=== PATIENT | male | born 1945 | race Caucasian/White ===

== ENCOUNTER 2025-01-22 16:27 | Inpatient (IN) | payer OTHER, SELFPAY ==
[2025-01-22] VITALS (44 sets, daily range): BP systolic 127–195; BP diastolic 80–124; BMI 36.7
[2025-01-22 15:29] LABS: Glucose - Point of Care 142 mg/dl (70-99)
--- NOTE | 2025-01-22 15:29 | ED.CVA ---
History of Present Illness
General
Chief Complaint: CVA/TIA Symptoms
Source: patient and ambulance crew
Time Seen by Provider: 01/22/25 15:23
Onset of Stroke Symptoms
Onset of symptoms known: Yes
Date of onset of symptoms: 01/22/25
Time pt last seen normal is known: Yes
Date last time pt seen normal: 01/22/25
Time last time pt seen normal: 14:30
History of Present Illness
History of Present Illness:
This is a 79-year-old male who presents after coworkers noticed that he was not behaving correctly. 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 They also report that he was last seen normal around 230 and walked out with sitting in
the car. Coworkers noticed that he was not really doing anything came out to check on him about half hour later. They found him not behaving normally. EMS was called. They found him to be aphasic and maybe a left-sided facial droop. They also
question right-sided weakness. On my assessment patient is severely aphasic. Does not know why he is here. Does answer his name. Unknown medical history. Blood glucose by EMS was normal
Past History
Past History
ED Past Medical History: Other (Unknown)
Phy Exam
Physical Exam
Physical Exam:
CONSTITUTIONAL Patient alert. Oriented to person. Well-appearing. Vital signs reviewed.
HEAD atraumatic, normocephalic.
EYES eyelids normal to inspection, Extraocular muscles intact, Conjunctiva normal, Sclera normal.
NECK normal range of motion, Trachea midline, no jugular venous distention.
RESPIRATORY CHEST No respiratory distress noted, Chest expansion equal,
BACK normal inspection, no obvious deformities
UPPER EXTREMITY range of motion normal, Motor strength normal, no cyanosis, no edema.
LOWER EXTREMITY range of motion normal, Motor strength normal, no cyanosis, no edema.
NEURO severely aphasic, no pronator drift. Unable to follow commands for cerebellar testing but no obvious ataxia.
SKIN skin warm, dry, and normal in color.
Course
Orders/Labs/Results
Orders:
Orders
01/22/25 15:23
CT HEAD STROKE ALERT W/o Cont Urgent
Comment:
Reason For Exam: aphasia
CT HEAD/NECK ANG STROKE ALERT Urgent
Comment:
Reason For Exam: aphasia
Cardiac Monitoring- Treatment ONCE
01/22/25 15:24
Electrocardiogram (*1) Stat
Reason for Study: Other
Other Reason for Exam: neuro symptoms
01/22/25 15:30
Tenecteplase [Tnkase] 25 mg Syringe [Syringe Non-Pump] 0 ml IV NOW
Provider explained risk/benefits to patient &/or caregiver?: Yes
Blood pressure: 192/124
01/22/25 15:44
Labetalol HCl [Trandate] 20 mg .ROUTE .STK-MED ONE
01/22/25 15:46
Labetalol HCl [Trandate] 10 mg IV NOW STA
Nicardipine 40 mg/200 ml [Cardene] 40 mg in 200 ml IV NOW
Initial dose in mg/hr, then titrate:: 5
Titrate to keep:: BP < 180/105 mmHg
Titrate by mg/hr:: 2.5 mg/hr
Frequency of titrations (minutes):: 5-15 minutes
Maximum dose in mg/hr:: 15
Begin to taper infusion when:: Remained at goal for 2hrs
Taper by mg/hr:: 2.5 mg/hr
Frequency of taper (minutes) if patient maintains goal:: 15-30 minutes
Taper to off?: Yes
If infusion off & no longer maintaining goal:: Contact Provider
01/22/25 16:02
Complete Blood Count/With Diff Urgent
Comprehensive Metabolic Panel Urgent
Glycohemoglobin (HgbA1c) Urgent
PTT Urgent
Prothrombin Time Urgent
TSH Reflex To Free T4 Urgent
Comment: ADD ON
Troponin I Urgent
01/22/25 16:09
Admit/Transfer Patient As Directed
Co-Sign Provider:
Level of Care: Inpatient admission
Assign to:: ICU
Physician / Group: fatuma
Diagnosis: cva
Reason for Hospitalization: cva
Expected length of stay greater than two midnights?: Yes
ELOS- Estimated Length of Stay in days: 2
I certify the patient meets the requirements for IP care: Yes
01/22/25 16:10
PRN Pain Medication Management As Directed
May give lesser potent ordered pain med per pt: Yes
preference::
Protocol:: Medication orders for pain may be administered in a
manner that supports deferring to patient preference
when the pt is:
- Requesting an ordered lesser potent pain medication.
Least to most potent pain medications are defined
as: acetaminophen < NSAID < tramadol < opioids
(morphine, oxycodone, hydromorphone).
- Requesting a lesser dose of the same medication IF
ORDERED.
- Requesting a less intrusive route of administration
if both routes are prescribed by the provider (PO <
IV).
01/22/25 16:11
Code Status As Directed
Resuscitation Status: Full Code
01/22/25 16:31
Case Management Consult ONCE
Case Management Consult: Discharge Planning
Comment: stroke/tia
DIETARY CONSULT Routine
Reason for Consult: stroke/TIA
Health Analytics Consultant Urgent
MRI Brain [MR Brain Without Contrast] Routine
Comment:
Reason For Exam: stroke
Recent pill cam endoscopy?: No
Activity As Directed
Activity Level: As Tolerated
NIH Stroke Scale As Directed
Directions: Per protocol
Comment: every shift and with any change in condition or mental status
Neurological Checks As Directed
Frequency: q1h
Additional Instructions:: q4h x 24h upon admission to the floor, then qshift & with any change in condition
and mental status
Patient Education As Directed
Type: Stroke education packet
Comment: provide to patient and family
Pneumatic Compression Sleeves As Directed
Type: Knee high
Swallow Screening CVA/TIA ONLY As Directed
Comment: NPO until swallowing screening completed
If patient FAILS swallow screening:: NPO, Speech Therapy consult, Aspiration Precautions
If patient PASSES swallow screening, diet:: NPO
Above diet order entered?: Yes- passed screening
Vital Signs As Directed
Frequency: Per unit guidelines
Ot Eval And Treat Routine
Pt Eval And Treat Routine
Activity Level: As Tolerated
Speech Therapy Eval & Treat Routine
DX Deep Vein Thrombosis Video Routine
01/23/25 06:00
Cardiovascular Evaluation IN AM
01/23/25 15:30
CT Head W/o Iv Contrast Routine
Comment:
Reason For Exam: stroke
Abnormal Lab Results
01/22/25 01/22/25
15:23 16:02
WBC 19.3 H 10^3/uL
(4.8-10.8)
RDW 14.6 H %
(11.5-14.5)
Absolute Lymphs (auto) 12.5 H 10^3/uL
(1.2-3.4)
Absolute Monos (auto) 0.8 H 10^3/uL
(0.1-0.6)
Neutrophils % 29.4 L %
(42.2-75.2)
Lymphocytes % 64.9 H %
(20.5-51.1)
PT 15.3 H Sec
(11.4-14.6)
BUN 25 H mg/dl
(9-20)
Glucose 150 H mg/dl
(70-99)
POC Glucose 142 H mg/dl
(70-99)
01/22/25 16:02
01/22/25 16:02
Vital Signs
Initial and Last Documented VS:
Initial Vital Signs
Pulse Resp BP Pulse Ox
94 22 192/124 97
01/22/25 15:21 01/22/25 15:21 01/22/25 15:21 01/22/25 15:21
Last Documented Vital Signs
Temp Pulse Resp BP Pulse Ox
97.7 F 73 16 170/106 93
01/22/25 19:57 01/22/25 22:45 01/22/25 22:45 01/22/25 22:45 01/22/25 22:00
MDM/Problems Addressed
MDM/Problems Addressed:
Acute CVA, hypertensive emergency, atrial fibrillation
*Radiology
Radiology exam reviewed: preliminary read by ED provider (no obvious hemorrhage)
*Pulse Oximetry
Patient hypoxic: no
*EKG
Interpreted by ED Provider?: Yes
Interpretation: abnormal
Rate: normal
Rhythm: a-fib and PVC's
Teague: normal axis
Ischemia: non-specific ST changes
*Senior Facilities Manager Interpretation
Rate: normal
Interpretation: abnormal
Rhythm: a-fib
*Critical Care Note
Total Time (30-74mins, 75-104mins- exclusive of procedures): 45 minutes
Data Reviewed
Source: patient and ambulance crew
Patient Management
Discussion with other providers: Horse Identifier (Case discussed with neurology) and Radiologist
Escalation/DeEscalation of care consider admission/obs:
Patient found to have atrial fibrillation. rad technologist was able to look up his [facility] account that was only filled for metoprolol. No evidence of Coumadin, Eliquis or any other anticoagulant. Neurology at bedside. Blood pressure
better after labetalol. TNK being given now
ED Attending Note
-
Portions of this chart may have been created with voice recognition software.� Occasional wrong word or��sound alike� substitutions may have occurred due to the inherent limitations of voice recognition software.
Discharge Plan
Departure
Patient Disposition: Admit
Date of Disposition: 01/22/25
Time of Disposition: 15:47
Admit to: ICU
Presentation/result/management discussed w/ accepting MD/DO: Hospitalist
Discharge Problem:
Acute cerebrovascular accident (CVA), Hypertensive emergency
Interventions
Interventions:
*Risk Screen - Suicide Last Done: 01/22/25 17:28
*ED COVID-19 Vaccine History Last Done: 01/22/25 17:26
*Nursing Disposition Last Done: 01/22/25 16:42
ED- Pulmonary Assessment Last Done: 01/22/25 15:58
ED- Neurological Assessment Last Done: 01/22/25 15:27
ED- Cardiac Assessment Last Done: 01/22/25 15:58
Discharge Date and Time
Discharge Date/Time: 01/22/25 16:50
--- NOTE | 2025-01-22 15:34 | EDRN ---
Patient arrived as prehospital stroke alert.
Patient is severely aphasic and not following commands. Patient is noted to have a right facial drop upon arrival.
Last know well time was 1430. 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 911 was called
Patient has 16g right arm and 18g left arm placed by EMS.
No previous records noted.
Neurologist bedside upon patients arrival.
--- NOTE | 2025-01-22 15:35 | CON.NEURO ---
Neuro Assessment/Plan
Assessment
Acute stroke left MCA territory
patient severely aphasic, unable to consent, unable to reach any family members, left for 'Seema'
patient in afib, per [facility] he is only on metoprolol, no bloodthinners. nobody available to confirm.
TNK given on emergent basis as it is standard of care
Plan
Admit to MICU for 24 hours of frequent neurochecks.�
neurochecks q1, Frequent vital signs Q15min x 2hrs, then Q30min x 6hrs, then Q1H x 16hrs until stable from the start of TNK.�
�tele, accuchecks/ISS. Repeat Head CT in 24 hours
Blood pressure goals: <180/105 and MAP 80-100� in the acute period.� If BP elevated for 2 readings, preferred agents include IV labetalol or nicardipine.� Vasopressors as necessary to maintain MAP and CPP.�
Glucose goals: Maintain euglycemia using sliding scale insulin. If glucose >180 for two consecutive readings, please use MICU insulin protocol.�
Temperature goals: maintain normothermia�
Diagnostic tests: MRI brain without contrast, ECHO with bubble.
Consultation
Order
Date of Consultation: 01/22/25
Requesting Provider: Ever Manzo
Reason for Consult: stroke alert
Subjective/Objective
Subjective Data
Date of Service: January 22, 2025
He is a 79 year old man presenting with aphasia.
LKN 1430. found inside his car behind [employer] where he works by coworker at 1500.
initial BP 192/124, spontaneously came down to 175/102 then went back up to 195/113, patient given Labetalol 10 171/104 and TNK given
Objective Data
Vital Signs
Pulse Resp BP Pulse Ox
94 22 192/124 97
01/22/25 15:21 01/22/25 15:21 01/22/25 15:21 01/22/25 15:21
Patient Allergies
No Known Allergies Allergy (Verified 01/22/25 15:25)
CVA Assessment
Onset of Stroke Symptoms
Time pt last seen normal is known: Yes
Date last time pt seen normal: 01/22/25
Time last time pt seen normal: 14:30
NIH Stroke Score
Level of Consciousness: 0 - Alert
LOC Questions: 2-Neither correct
LOC Commands: 2-Performs neither correctly
Best Horizontal Gaze: 0-Normal
Visual Mantilla: 0=Normal, no visual loss
Facial Palsy: 1=Minor paralysis
Motor - Right Arm: 0=No drift 10 seconds
Motor - Left Arm: 0=No drift 10 seconds
Motor - Right Le-Drift < 5 seconds
Motor - Left Le-No drift 5 seconds
Limb Ataxia: 0-Absent
Sensation: 0-Normal
Best Language: 2-Severe aphasia
Dysarthria: 0-Normal
Extinction and Inattention: 0-No abnormality
Total Score:: 8
Physical Exam
-
Severe global aphasia
unable to name pen, difficulty following simple commands
right NL flattening
Mild right leg weakness
Medications
-
Home Medications
�Medication �Instructions �Recorded
metoprolol succinate 100 mg 100 mg PO DAILY 01/22/25
tablet,extended release 24 hr
(Toprol XL)
--- NOTE | 2025-01-22 15:46 | EDRN ---
TNK to be given once BP gets below 180 systolic.
[2025-01-22] MEDS: TRANDATE 10 MG IV (15:47)
[2025-01-22] MEDS: TNKASE 5 MG IV (15:51)
--- NOTE | 2025-01-22 16:19 | HPS.HSE ---
Family Physician
-
Family Physician: INTERVIEWE UNKNOWN - PT NOT
Chief Complaint
-
aphasia
History of Present Illness
79-year-old male past medical history of hypertension presenting with not behaving correctly. 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 He was last seen normal at around 2:30 PM and walked out sitting in the car. Coworkers noticed that he was not
really doing anything and came out to check on him half an hour later. They found him behaving abnormally. EMS called and they found him to be aphasic with left-sided facial droop. Also questionable right-sided weakness. Blood sugar by EMS was
normal.
On examination here patient has noticeable aphasia. No other neurological deficits at this time.
Unable to obtain any history as no family available.
Patient unable to provide accurate history although following commands.
Medical History
Past Medical History
Past Medical History: Reports Other (hypertension )
Past Surgical History: Reports None
Social History
Unable to obtain full social history at this time due to: Patient Non-verbal
Family History
Family History: Unable to Obtain
Allergies / Home Medications
Allergies reflects when Allergies were last updated in [facility].
Home Medications with original date entered in [facility]
Allergy/Medication List:
Allergies
Allergy/AdvReac Type Severity Reaction Status Date / Time
No Known Allergies Allergy Verified 01/22/25 15:25
Home Medications
metoprolol succinate 100 mg tablet,extended release 24 hr (Toprol XL) 100 mg PO DAILY 01/22/25
Review of Systems
-
History Source: Patient
A 12 point ROS was completed and negative except as noted: No
Physical Exam
Vital Signs
Vital Signs
Pulse Resp BP Pulse Ox
85 18 171/106 95
01/22/25 16:08 01/22/25 16:08 01/22/25 16:08 01/22/25 15:48
Physical Exam
General: Well Developed, Well Nourished and No Apparent Distress
HEENT: NormoCephalic, Moist mucous membranes and Atraumatic
Respiratory: Clear
Cardiac: S1/S2 and Regular Rhythm; No Murmur or Rub
GI: Soft, Non Tender, Non Distended and Normal Bowel Sounds; No Organomegaly
Rectal: Deferred by Provider
Musculoskeletal: No Clubbing, No Cyanosis and No Edema
Skin: No Rash
Neuro: Nonfocal/grossly intact
Data Reviewed
-
Lab Data: Labs Reviewed by me
Old Records: Reviewed
Impression/Plan
-
IMPRESSION:
PLAN:
# Acute aphasia/altered mental status concerning for large CVA
# Hypertensive emergency
-NIH of 8
-Patient AAO x 0 although following commands with significant aphasia but no other neurological deficits
-Blood pressure of 192/124
-IV labetalol given
goal of keeping blood pressure below 180/105
-Nicardipine drip started
-CT head shows no acute abnormality
-CT angio head and neck pending
-Repeat Ct head in 24 hours
-TNK being given
-Neurochecks q1, NIH checks per protocol
-Check A1c and lipid panel
-N.p.o.
-Check speech and swallow
-Neurology consulted
# New onset atrial fibrillation
-Rate controlled
-Cardiology consulted
Essential hypertension
-Unclear if compliant with metoprolol
Full code
DVT prophylaxis�SCDs
N.p.o.
[2025-01-22 16:20] LABS: Hematocrit 44.3 % (39.0-52.0); Mean Corp Hgb Conc. 33.9 g/dL (33.0-37.0); Mean Corpuscular Hgb 29.6 pg (27.0-31.0); Mean Corpuscular Volume 87.5 fL (80.0-94.0); Mean Platelet Volume 8.9 fL (7.4-10.4); Platelet Count 222 10^3/uL (130-400); Red Blood Cell Count 5.06 10^6/uL (4.70-6.10); Red Cell Dist. Width 14.6 % (11.5-14.5); White Blood Cell Count 19.3 10^3/uL (4.8-10.8)
[2025-01-22 16:26] LABS: INR 1.15; PT 15.3 Sec (11.4-14.6)
[2025-01-22 16:27] LABS: APTT 26.8 Sec (23.4-35.0)
[2025-01-22 16:28] LABS: ALT (SGPT) 22 U/L (0-50); AST (SGOT) 27 U/L (17-59); Alkaline Phosphatase 75 U/L (38-126); Blood Urea Nitrogen 25 mg/dl (9-20); Calcium 9.1 mg/dl (8.4-10.2); Carbon Dioxide 25 mmol/L (22-30); Chloride 104 mmol/L (98-107); Glucose 150 mg/dl (70-99); Potassium 4.5 mmol/L (3.5-5.1); Sodium 136 mmol/L (135-145); Total Protein 6.6 g/dl (6.3-8.2); eGFR > 60.00
[2025-01-22 16:39] LABS: Troponin I < 0.012 ng/ml
--- NOTE | 2025-01-22 16:42 | EDRN ---
Patient was transported to the ICU via ED stretcher.
Verbal report was given to Artemio BHAKTA
Bedside NIH was completed during handoff.
--- NOTE | 2025-01-22 16:44 | CON.CAR ---
Addendum entered and electronically signed by Chauncey Mercedes MD 01/22/25 17:28:
I saw and examined the patient.
The Occupational Therapy Assistant's note was reviewed and I agree with the note.
Comment: Briefly, 79-year-old man past medical history of hypertension found by coworkers to have weakness and facial droop. With concern for acute left MCA stroke patient received TNK in [facility].
Initial ECG showed atrial fibrillation which would be most likely etiology of his CVA
Patient and his tell me they were unaware of a diagnosis of atrial fibrillation previously, although difficult to obtain history from patient given his ongoing expressive aphasia
Given new diagnosis of atrial fibrillation would monitor on telemetry overnight, currently rate controlled with heart rates in the 70s, goal less than 110 bpm
Check transthoracic echocardiogram in a.m. to assess for cardiomyopathy or valvular pathology
Reviewed that patient will ultimately need oral anticoagulation ([id number] of 5 for age, hypertension, stroke) but will defer timing to neurology with concern for possible hemorrhagic conversion
In regards to his blood pressure, per neurology goal BP less than 180/105 mmHg. Agree with nicardipine and as needed labetalol.
Will attempt to obtain prior cardiology records from [facility] in a.m.
Rest per Svetlana Langford
Original Note:
Consultation
Consultation Request
Date/Time Consultation Requested: 01/22/25
Date/Time Consultation Performed: 01/22/25
Requesting Provider: Dr. Fitch
Performing Provider: Dr. Mercedes
Reason for Consultation: HTN emergency
Medical History
-
History of Present Illness:
Patient came to [facility] today as a stroke alert and is being admitted with CVA and new Afib so cardiology is being consulted. Patient with intermittent aphasia, but his is sitting bedside and relates that patient went to work in his usual state of
health. 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 Patient was brought to ER as
a stroke alert and there was concern for a left MCA territory CVA and so he was given TNK. Telemetry monitoring showed atrial fibrillation with controlled ventricular response of unknown chronicity. Patient's is unaware of any diagnosis of
A-fib in the past no previous complaints of palpitations. Patiently is chronically on Toprol-XL 100 mg daily reportedly for history of HTN. He takes an aspirin 81 mg daily at home as well. Patient had seen a oral communication instructor years ago through [facility],
but has not followed up and again no clear previous diagnosis of A-fib. Patient follows with the PCP at the [facility] and sees her once a year or less.
PMH:
HTN
Past Medical History
Past Medical History: Other (in HPI)
Past Surgical History: None
Social History
Tobacco: Non-Smoker
Alcohol: None
Drug: None
Personal:
Living: With Family
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
Family History
Family History: Hypertension
Allergies / Home Medications
Allergy/AdvReac Type Severity Reaction Status Date / Time
No Known Allergies Allergy Verified 01/22/25 15:25
�Medication �Instructions �Recorded �Confirmed �Type
metoprolol succinate 100 mg 100 mg PO DAILY 01/22/25 01/22/25 History
tablet,extended release 24 hr
(Toprol XL)
Review of Systems
-
History Source: Patient and Family ( sitting bedside)
All other systems: Negative unless noted
Physical Exam
Vital Signs
Pulse Resp BP Pulse Ox
77 18 184/113 95
01/22/25 16:38 01/22/25 16:38 01/22/25 16:38 01/22/25 15:48
GEN: NAD. Awake and alert, intermittent aphasia
HEENT: EOMI, MMM
LUNGS: RA. No audible wheeze
CV: Afib on tele. Irreg irreg, no murmur
ABD: soft, BS+, NT, ND
EXT: No clubbing, cyanosis, lesions or edema B/L
NEURO: Gross non-focal
SKIN: Warm, dry and pink. No rash
Lab Results
01/22/25 16:02
01/22/25 16:02
Troponin I < 0.012 ng/ml 01/22/25 16:02
Impression / Plan
-
PCP: at [facility]
Card: Dr. Sorto [phone]
Impression:
Admitted with aphasia, left sided facial droop, acute CVA and received TNK 01/22/25
Acute left MCA territory CVA 01/22/25
s/p TNK 01/22/25
Afib with controlled ventricular response of unknown chronicity
HTN
Echo 01/22/25: study pending
Plan:
-Patient came to [facility] today as a stroke alert and is being admitted with CVA and new Afib so cardiology is being consulted. Patient with intermittent aphasia, but his is sitting bedside and relates that patient went to work in his usual state
of health. 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 Patient was brought to ER
as a stroke alert and there was concern for a left MCA territory CVA and so he was given TNK. Telemetry monitoring showed atrial fibrillation with controlled ventricular response of unknown chronicity. Patient's is unaware of any diagnosis of
A-fib in the past no previous complaints of palpitations. Patiently is chronically on Toprol-XL 100 mg daily reportedly for history of HTN. He takes an aspirin 81 mg daily at home as well. Patient had seen a oral communication instructor years ago through [facility],
but has not followed up and again no clear previous diagnosis of A-fib. Patient follows with the PCP at the [facility] and sees her once a year or less.
-ECG reviewed by me shows A-fib with controlled ventricular response
-Patient was given TNK today and is not yet a candidate for OAC. Talked with patient and about eventually starting Eliquis 5 mg BID (age 79, wt 116 kg).
-Cont Toprol XL 100 mg daily as HR's are currently controlled.
-Will call Dr. Sorto's office in the morning to obtain records and tried to give some level of chronicity to his new finding of A-fib
-Check echo, already ordered
-Follow on tele, HRs controlled thus far
[2025-01-22 17:06] LABS: % Basophils 0.4 % (0-2); % Eosinophils 1.2 % (0-6); % Immature Granulocytes 0.2 % (0-0.5); % Lymphocytes 64.9 % (20.5-51.1); % Monocytes 3.9 % (1.7-9.3); % Neutrophils 29.4 % (42.2-75.2); Absolute Basophils 0.1 10^3/uL (0-0.2); Absolute Eosinophils 0.2 10^3/uL (0-0.7); Absolute Lymphocytes 12.5 10^3/uL (1.2-3.4); Absolute Monocytes 0.8 10^3/uL (0.1-0.6); Absolute Neutrophils 5.7 10^3/uL (1.4-6.5); Nucleated Red Blood Cells % 0 % (-)
[2025-01-22] MEDS: CARDENE 200 IV (17:31)
--- NOTE | 2025-01-22 17:50 | CON.INTV ---
Consultation
Consultation Request
Date/Time Consultation Requested: 01/22/2025 - 1709
Date/Time Consultation Performed: 01/22/2025 - 1727
Requesting Provider: Dr. Fitch
Performing Provider: Dr. Cannon
Reason for Consultation: Suspected CVA s/p TNK
Medical History
-
Chief Complaint: Not acting right with concern for stroke
History of Present Illness:
79-year-old male non-smoker with a past medical history of hypertension who presents with altered mental status. Patient works at [employer] here at [place]. 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
He continues to work at [employer] so that he continues to stay busy in his halfway. While at work today, he was acting abnormal and was seen walking out and sitting in his car. His coworkers noticed that he was not doing anything and came out to
check on him 30 minutes later when they found him behaving abnormally. They called 911 and said that he may be having a stroke as he was not speaking correctly with a left-sided facial droop. On arrival, patient was breathing at 22 breaths/min, BP
192/124, saturating 97% on room air and pulse rate 94. Labs showed leukocytosis to 19.3, INR 1.15, glucose 150, troponin negative at <0.012, and serum sodium 136. Initial NIH stroke scale of 8. There was initially severe global aphasia with right
nasolabial flattening and mild right leg weakness. Initial CT head showed no evidence of an acute intracranial pathology. CTA head/neck showed no LVO, stenosis or occlusion. There was 50-70% stenosis in the clinoid segment of the right ICA. Also
a large multinodular thyroid goiter. Given concern for a left MCA stroke, patient was given TNK at 1551 on 01/22/2025. 4 minutes before giving the TNK, he was given 10 mg labetalol. Patient then brought up to the ICU s/p TNK for close neurological
monitoring and Pin Machine Operator services consulted for additional management/recommendations.
When I saw the patient, his , Seema, was at bedside and assisted with the HPI. According to her, he has no other history besides high blood pressure. She says that he has been compliant with his blood pressure medications and he also takes
aspirin. He is a non-smoker and no current alcohol use. He used to be in the [employer] and was in [place]. There is no prior known history of A-fib although it is currently being detected on the personnel monitor + EKG. The patient's blood pressure
currently is 183/100 and he is on Cardene at 2.5 mg/h. He saturating 97% on room air and heart rate is 79. The patient is able to answer some my questions but he does not always answer appropriately, however he was able to follow most of my
commands and appears in no acute distress.
PMHx: Hypertension + history of vertigo (last episode about 3 years ago)
PSHx: Non-contributory
Past Medical History
Past Medical History: Other (Above as per HPI)
Past Surgical History: Other (Above as per HPI)
Social History
Tobacco: Non-smoker
Alcohol: None
Drug: None
Personal:
Living: With Family (Seema=)
Family History
Family History: CAD (Mother), Cancer (Mother: History of throat cancer (she also was a smoker)) and Other (Father when the patient was just the baby, unknown what the etiology was)
Allergies / Home Medications
Allergies
Allergy/AdvReac Type Severity Reaction Status Date / Time
No Known Allergies Allergy Verified 01/22/25 15:25
Home Medications
�Medication �Instructions �Recorded �Confirmed �Last Taken �Type
metoprolol succinate 100 mg 100 mg PO DAILY 01/22/25 01/22/25 Unknown History
tablet,extended release 24 hr
(Toprol XL)
Review of Systems
Vitals / Labs / Diagnostic Testing
Vital Signs
Pulse Resp BP Pulse Ox
90 18 151/114 95
01/22/25 18:15 01/22/25 18:15 01/22/25 18:15 01/22/25 17:45
Lab Data
01/22/25 16:02
01/22/25 16:02
Laboratory Results
01/22/25
16:02
PT 15.3 H
INR 1.15
APTT 26.8
Diagnostic Testing:
Physical Exam
-
HEENT: Normocephalic and Anicteric
Cardiovascular: Irregular Rhythm (Irregularly irregular), Peripheral Edema (Trace lower extremity edema bilaterally) and Other (Normal heart rate)
Respiratory: Clear, Wheeze (negative), Rales (negative), Rhonchi (negative) and Accessory Resp Muscle Use (negative)
GI: Soft, Non Distended, Non Tender and Normal Bowel Sounds
Neurology: Awake, Alert, No Motor Deficits (Unable to assess senior market intelligence consultant strength due to inability to follow directions; normal bilateral feet dorsi-/plantarflexion with strength: 5/5), Tremors (negative) and Other (Normal sensation to light touch in all 4
extremities as well as face; slight right nasolabial fold flattening when patient smiles; normal shoulder shrug to resistance; able to keep eyes closed against resistance; able to protrude tongue with normal lateral movement; pupils equal at 3mm and
brisk)
Skin: Warm and Dry
General: Respiratory Distress (negative), Comfortable, Fever (negative), Chills (negative) and Sweats (negative)
Assessment
-
Assessment: 79-year-old male non-smoker with a past medical history of hypertension who presents with altered mental status. Patient works at [employer] here at [place]. 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 He continues to work at [employer] so that he continues to stay busy in his halfway. While at work today, he was acting abnormal and was seen walking out and sitting in his car. His coworkers noticed that he was not doing anything and
came out to check on him 30 minutes later when they found him behaving abnormally. They called 911 and said that he may be having a stroke as he was not speaking correctly with a left-sided facial droop. On arrival, patient was breathing at 22
breaths/min, BP 192/124, saturating 97% on room air and pulse rate 94. Labs showed leukocytosis to 19.3, INR 1.15, glucose 150, troponin negative at <0.012, and serum sodium 136. Initial NIH stroke scale of 8. There was initially severe global
aphasia with right nasolabial flattening and mild right leg weakness. Given concern for a left MCA stroke, patient was given TNK at 1551 on 01/22/2025. 4 minutes before giving the TNK, he was given 10 mg labetalol. Patient then brought up to the
ICU s/p TNK for close neurological monitoring and Pin Machine Operator services consulted for additional management/recommendations.
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
was about 20 years ago)
Impression:
#Expressive aphasia with word finding difficulty and right-sided facial weakness (although reports say L-sided facial weakness, but at bedside its his right-side of his face that has deficits) and dysarthria concerning for left MCA stroke s/p TNK
#Leukocytosis likely reactive due to above
#New onset atrial fibrillation (seen on personnel monitor with no prior history known to the patient, as per today)
#Large multinodular thyroid goiter seen on CTA neck from 01/22/2025
#Right internal carotid artery stenosis with 50-70% diameter at clinoid segment seen on CTA head from 01/22/2025
#History of hypertension
Plan:
- Patient has received TNK on 01/22/2025 at 1551 and will require admission to the ICU for q1hr neurochecks
- Neurology consulted and recommendations appreciated
- Continue with NIH stroke scale every shift and obtain stat CT head for any sudden change in neurological status with notification to neurology, health sciences dean and hospitalist
- Strict BP control with goal <180/105, while keeping MAP>65
- Maintain SpO2 >92-94% with aspiration precautions; prn nebulized bronchodilators - not currently bronchospastic
- Maintain MAP>65
- Maintain euglycemia with goal BG 140-180
- Check TTE with bubble study
- MRI brain pending per neuro
- Keep NPO until RN performs bedside swallow study, however would not allow to eat food until pt formally seen by CLINIC MANAGER
- PT/OT; may need physiatry consult
- Given his new onset of atrial fibrillation, would consult cardiology
- Continue with rate control with goal HR <110
- Replete electrolytes with K>4, Mg>2
- Follow up echo
- Initial troponin was negative at <0.012
- Check TSH with reflex to free T4
- Trend H/H and transfuse if needed to keep Hb>7g/dL; keep plt>100k
- DVT ppx: SCDs for now until CT head shows no evidence for ICH after 24 hours s/p TNK
Continue ICU level care for this critically ill patient
Critical care statement: A total of 44 minutes of critical care time was provided for this patient today. This includes management of unstable vital signs, evaluation of the patient at bedside, reviewing the patient's pertinent medical records
including radiographs, microbiology, laboratory evaluations, and discussion with primary team, consultants, pharmacy, nutrition, physical therapy, case management, charge nurse, critical care nursing, and respiratory therapy.
Data:
CT head without contrast 01/22/2025: No evidence of acute intracranial abnormality.
CTA head/neck 01/22/2025:
NECK CTA:
1. Mild calcific atherosclerotic plaque in both carotid bifurcations without evidence for stenosis or occlusion.
2. No CTA evidence for stenosis or occlusion in either vertebral artery.
3. Large multinodular thyroid goiter.
4. 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
5. Severe left facet joint arthrosis at C3/C4 causing severe left neural foraminal narrowing.
HEAD CTA:
1. 50-70% diameter stenosis in the clinoid segment of the right ICA.
2. No CTA evidence for stenosis or occlusion in either middle or anterior cerebral artery.
3. 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
4. No CTA evidence for large vessel arterial stenosis or occlusion in the posterior circulation.
--- NOTE | 2025-01-22 18:24 | PTCARENOTE ---
Pt. arrived from ED, Bedside report completed approx 1608.
TNK given at 1551 per ED mar.
NIH upon arrival 6, x1 post TNK NIH 6, x2 post TNK NIH 6.
Dysarthria improving, Aphasia is expressive/receptive. No sensory loss noted, Full gaze upon H exam. No motor loss noted, equal reactions w.o drift in all 4 extrem. Left sided eyelid droop, Minor left sided droop w. Smile. See NIH flowsheets for
further details. Of note, reports baseline eyelid drooping of Left eye, however admits it to appear worse then normal.
Afib on monitor, Hypertensive Nicarpidine started titrated per protocol see flow sheets. Normothermic.
Both IV sites are prehospital, keeping due to bleeding risk per TNK protocol.
bedside, MRI screening completed by via phonecall wilber conklin RN.
All questions at this time answered.
--- NOTE | 2025-01-22 18:45 | PTCARENOTE ---
NIH during change of shift showed change in mental status, bone drier operator and neurology made aware, stat CT ordered.
--- NOTE | 2025-01-22 18:59 | W.PN.UPDATE ---
Update Note
Progress Note Update
I was notified by the RN that the patient is now having worsening aphasia. I immediately saw the patient and he is having worsening word finding difficulty and appears that he is neglecting his entire right side. Stat CT head is ordered.
Neurology notified. Nighttime ICU EMAIL MARKETING EXECUTIVE made aware. Will continue to closely monitor.
--- NOTE | 2025-01-22 19:15 | PTCARENOTE ---
pt returned from CT, neuro and NIHSS per worklist
--- NOTE | 2025-01-22 20:00 | PTCARENOTE ---
assumed care, dual RN NIHSS worse, dysarthria worsened slurred and garbled speech, expressive and receptive aphasia, pupils 3 equal and reactive, no visual, motor or sensory changes, refer to neuro and NIHSS per worklist, pt appeared to ignore right
side but quickly resolved, when taken to CT patient was able to slide self to and from bed, AFIB on the monitor c PVCs, + pulses, lungs clear on RA 95%, BSx4, pt using urinal blood tinged urine output c blood smear on urinal BULK PLANT OPERATOR made aware, 16G RFA,
18G LFA, both prehospital and not removed following TNK protocol, Cardene off, CHG bath, call pak within reach, otherwise refer to documentation
[2025-01-22 20:57] LABS: TSH Reflex To Free T4 1.01 uIU/ml (0.47-4.68)
[2025-01-22] MEDS: NSS 1000 IV (21:16)
[2025-01-23] VITALS (67 sets, daily range): BP systolic 113–183; BP diastolic 64–134; BMI 36.3
--- NOTE | 2025-01-23 00:30 | PTCARENOTE ---
systems reviewed, neuro checks per worklist, NS 100ml, otherwise refer to documentation
[2025-01-23 04:48] LABS: Hematocrit 43.2 % (39.0-52.0); Hemoglobin 14.4 g/dL (13.0-18.0); Mean Corp Hgb Conc. 33.3 g/dL (33.0-37.0); Mean Corpuscular Hgb 29.3 pg (27.0-31.0); Mean Corpuscular Volume 87.8 fL (80.0-94.0); Mean Platelet Volume 9.2 fL (7.4-10.4); Platelet Count 223 10^3/uL (130-400); Red Blood Cell Count 4.92 10^6/uL (4.70-6.10); Red Cell Dist. Width 14.5 % (11.5-14.5); White Blood Cell Count 22.8 10^3/uL (4.8-10.8)
[2025-01-23 04:57] LABS: Blood Urea Nitrogen 19 mg/dl (9-20); Calcium 9.2 mg/dl (8.4-10.2); Carbon Dioxide 25 mmol/L (22-30); Chloride 106 mmol/L (98-107); Estimated Creatinine Clearance 99 ml/min; Glucose 111 mg/dl (70-99); HDL Cholesterol 47 mg/dl; LDL Cholesterol, Calculated 139 mg/dl; Magnesium 2.2 mg/dl (1.6-2.3); Phosphorus 3.2 mg/dl (2.5-4.5); Potassium 4.4 mmol/L (3.5-5.1); Sodium 139 mmol/L (135-145); Total Cholesterol 203 mg/dl (50-199); Triglyceride 86 mg/dl (10-149); Very Low Density Lipoprotein 17 mg/dl (0-30); eGFR > 60.00
--- NOTE | 2025-01-23 05:26 | PTCARENOTE ---
systems reviewed, Cardene gtt titrated per worklist, labs sent, nuero checks per worklist, otherwise refer to documentation.
--- NOTE | 2025-01-23 07:14 | PTCARENOTE ---
Assumed care of pt. approx 0700.
NIH completed per protocol w. offgoing night team RN. NIH 8, significant for aphasic responses appearing to have minor right sided neglect. No motor deficits noted upon assessment see flowsheets for further details.
BP elevated at times, Cardene restarted.
MRI scheduled for today.
Hematuria noted in urinal.
--- NOTE | 2025-01-23 08:10 | W.PN.INTV ---
Addendum entered and electronically signed by Edgar Cannon MD 01/24/25 09:24:
Patient was weaned off of Cardene drip on 01/23/2025, and was deemed stable for downgrade per neurology. Patient transferred out of the ICU to the floor. No additional recommendations at this time. Hat Cleaner/Pulmonary service will now sign off.
Thank you for allowing us to be involved in the care of this patient. Please reconsult if there are any additional questions/concerns, or if patient's respiratory status deteriorates.
Original Note:
Today's Communication / Plan
Recommendations
Continue Cardene drip with permissive hypertension
Neurology + cardiology on board and recs appreciated
Heart rate control
Replete K>4, Mg>2
Aspiration precautions
Check echo with bubble study
Follow-up MRI brain today
Defer starting anticoagulation to neurology + cardiology depending on risk of hemorrhagic conversion of brain infarcts
PT/OT/HEAVY REPAIRER
Continue with ICU level care for this critically ill patient
Assessment
-
Assessment: 79-year-old male non-smoker with a past medical history of hypertension who presents with altered mental status. Patient works at [employer] at [place]. 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 While at work today, he was acting abnormal and was seen walking out and sitting in his car. His coworkers noticed that he was not doing anything and
came out to check on him 30 minutes later when they found him behaving abnormally. They called 911 and said that he may be having a stroke as he was not speaking correctly with a left-sided facial droop. On arrival, patient was breathing at 22
breaths/min, BP 192/124, saturating 97% on room air and pulse rate 94. Labs showed leukocytosis to 19.3, INR 1.15, glucose 150, troponin negative at <0.012, and serum sodium 136. Initial NIH stroke scale of 8. There was initially severe global
aphasia with right nasolabial flattening and mild right leg weakness. Given concern for a left MCA stroke, patient was given TNK at 1551 on 01/22/2025. 4 minutes before giving the TNK, he was given 10 mg labetalol. Patient then brought up to the
ICU s/p TNK for close neurological monitoring and Hat Cleaner services consulted for additional management/recommendations.
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
was about 20 years ago)
Impression:
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
CVA s/p TNK
#Leukocytosis likely reactive due to above
#New onset atrial fibrillation (seen on ekg monitor with no prior history known to the patient, as per )
#Large multinodular thyroid goiter seen on CTA neck from 01/22/2025
#Right internal carotid artery stenosis with 50-70% diameter at clinoid segment seen on CTA head from 01/22/2025
#History of hypertension
Plan:
- Pt has new onset A fib and this is a suspected cardio-embolic stroke
- Patient has received TNK on 01/22/2025 at 1551; continue q1hr neurochecks at least for >24 hrs s/p TNK
- Neurology consulted and recommendations appreciated
- Continue with NIH stroke scale qshift and obtain stat CT head for any sudden change in neurological status with notification to neurology, special order jeweler and hospitalist
- Strict BP control with goal <180/105, while keeping MAP>65; currently on cardene gtt
- Maintain SpO2 >92-94% with aspiration precautions; prn nebulized bronchodilators - not currently bronchospastic
- Maintain MAP>65
- Maintain euglycemia with goal BG 140-180
- Check TTE with bubble study
- MRI brain pending per neuro
- Patient seen by HEAVY REPAIRER today and recommend IDDSI level 7 with thin liquids
- PT/OT; may need physiatry consult
- Given his new onset of atrial fibrillation, cardiology consulted - recs appreciated
- Continue with rate control with goal HR <110
- Replete electrolytes with K>4, Mg>2
- Follow up echo
- Initial troponin was negative at <0.012
- TSH WNL at 1.01
- Trend H/H and transfuse if needed to keep Hb>7g/dL; keep plt>100k
- DVT ppx: SCDs for now unless MRI brain today shows no evidence for ICH after 24 hours s/p TNK
Continue ICU level care for this critically ill patient
Critical care statement: A total of 38 minutes of critical care time was provided for this patient today. This includes management of unstable vital signs, evaluation of the patient at bedside, reviewing the patient's pertinent medical records
including radiographs, microbiology, laboratory evaluations, and discussion with primary team, consultants, pharmacy, nutrition, physical therapy, case management, charge nurse, critical care nursing, and respiratory therapy.
Data:
CT head without contrast 01/22/2025: No evidence of acute intracranial abnormality.
CTA head/neck 01/22/2025:
NECK CTA:
1. Mild calcific atherosclerotic plaque in both carotid bifurcations without evidence for stenosis or occlusion.
2. No CTA evidence for stenosis or occlusion in either vertebral artery.
3. Large multinodular thyroid goiter.
4. 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
5. Severe left facet joint arthrosis at C3/C4 causing severe left neural foraminal narrowing.
HEAD CTA:
1. 50-70% diameter stenosis in the clinoid segment of the right ICA.
2. No CTA evidence for stenosis or occlusion in either middle or anterior cerebral artery.
3. 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
4. No CTA evidence for large vessel arterial stenosis or occlusion in the posterior circulation.
CT head 01/22/2025 at 7:58 PM after change in mental status with right-sided neglect:
1. New asymmetric loss of wqap-jeyfe-sniub matter differentiation in the posterior superior left temporal lobe and inferior left parietal lobe suggesting cytotoxic edema from an acute transcortical ischemic infarct in the left middle cerebral
artery territory.
2. Mild diffuse cerebral and cerebellar volume loss.
Subjective Dataa
Subjective Data
Date of Service:
Date of Service: January 23, 2025
Chief Complaint: Hat Cleaner Follow Up
Subjective:
Patient seen evaluate this morning. Still having confusion and answering questions inappropriately. Patient's , Seema, at bedside and all questions were answered. He is speaking clearly. BP 152/94, heart rate 107 and saturating 97%.
Currently on Cardene at 2.5 mg/hr. On room air breathing comfortably.
Review of Systems
General: Other (Unobtainable due to altered mental status/confusion)
Objective Data
Data Reviewed
Vital Signs / I&O / Oxygen:
Vital Signs
Temp Pulse Resp BP Pulse Ox
97.6 F 99 20 154/85 95
01/23/25 08:29 01/23/25 09:16 01/23/25 09:16 01/23/25 09:16 01/23/25 09:16
Intake and Output
01/22/25 01/23/25 01/24/25
06:59 06:59 06:59
Intake Total 945.0 / 1045.0 325.0 / 325.0
Output Total 700 / 700 400 / 400
Balance 245.0 / 345.0 -75.0 / -75.0
SaO2 95
Physical Exam
General: Respiratory Distress (negative), Comfortable, Chills (negative) and Sweats (negative)
HEENT: Normocephalic and Anicteric
Cardiovascular: Irregular Rhythm, Rub (negative) and Peripheral Edema (negative)
Respiratory: Wheeze (negative), Crackles (negative), Rhonchi (negative) and Non-Labored Respirations
GI: Soft, Non Distended and Non Tender
Neurology: Awake, Alert, No Motor Deficits (Unable to assess rotary slicing machine operator strength due to inability to follow directions; normal bilateral feet dorsi-/plantarflexion with strength: 5/5), Tremors (negative) and Other (Normal sensation to light touch in all 4
extremities as well as face; slight right nasolabial fold flattening when patient smiles; normal shoulder shrug to resistance; able to keep eyes closed against resistance; able to protrude tongue with normal lateral movement; pupils equal at 3mm and
brisk)
Skin: Warm, Dry, Cyanosis (negative) and Jaundice (negative)
Labs/Micro/Reports
Lab Data
01/23/25 04:18
01/23/25 04:18
Laboratory Results
01/22/25
16:02
PT 15.3 H
INR 1.15
APTT 26.8
[2025-01-23 09:20] LABS: Glycohemoglobin (HgbA1c) 5.7 % (4.0-5.6)
[2025-01-23] MEDS: COREG 3.125 MG PO ×2 (11:09→20:33)
--- NOTE | 2025-01-23 12:57 | PTCARENOTE ---
No change in assessment. see neuro flowsheets for closer details.
[2025-01-23] MEDS: NSS IV (13:18)
--- NOTE | 2025-01-23 14:08 | PTOTSP ---
Speech Therapy Evaluation:
Swallow:
Pt presents with grossly functional oropharyngeal swallow at bedside. No overt s/sx of aspiration across PO trials. Pt passed 3oz swallow screen. No hx of dysphagia or PNAs per pt/family report or chart review. Given increased WBC count, no
completed chest imaging, and ongoing CVA workup (awaiting MRI), GERM DRIER services will continue to briefly follow.
Language:
Pt earned an overall score of 2.17 on the QAB, indicative of SEVERE aphasia impacting expressive language, receptive language, repetition, and oral reading. In conversation and during structured assessment, pt's speech varied between fluent and
non-fluent characteristics. It was often slow and halting, with a telegraphic quality, as well as phonemic and semantic paraphasias with frequent word finding deficits. At other times, pt's speech was empty (vague words, utterances unclear in
meaning and/or tangential) and paragrammatic, with occasional neologisms. Given this mix of both fluent and non-fluent features, in addition to impairments with repetition, pt is currently presenting with a mixed aphasia. Cognition not assessed on
this date given extent of language impairments that would negatively impact score on cognitive assessment.
Word comprehension: 0.83
Sentence comprehension: 0.00
Word findin.08
Grammatical construction: 2.00
Speech motor programmin.50
Repetition: 0.00
Readin.92
QAB overall score 2.17 (SEVERE)
Recommend:
1. Continue IDDSI Level 7 (regular) solids and thin liquids
2. Medications as tolerated
3. General aspiration precautions
4. GERM DRIER to follow briefly at acute care level for swallow. Ongoing tx at the acute care level and following d/c at the next level of care recommended to target language deficits.
--- NOTE | 2025-01-23 14:52 | W.PN.HOSP.TC ---
Addendum entered and electronically signed by Oswaldo Schmitz MD 01/23/25 21:39:
Attending Addendum-
I saw and evaluated the patient. I reviewed the resident�s note and agree with findings and plan as documented in the resident�s note. Sub: Patient seen with . Severe word finding difficulty but follows commands intermittently . H/O from .
Doesn't appear to be in distress. Had worsening aphasia last PM and repeat CT done. Full 12 point ROS reviewed and negative except as documented - limited by aphasia Exam: Vitals reviewed in chart GEN-NAD Hert irreg irreg lungs clear abd soft LE no
edema Neuro expressive aphasia following commands intermittently MS 5/5 throughout no cerebellar deficits no facial droop noted no right sided neglect noted
# Acute CVA
# Hypertensive emergency
-Blood pressure of 192/124
-IV labetalol given
goal of keeping blood pressure below 180/105
-cont Nicardipine gtt-wean as able
-likely cardioembolic with new a fib
NECK CTA:
1. Mild calcific atherosclerotic plaque in both carotid bifurcations without evidence for stenosis or occlusion.
2. No CTA evidence for stenosis or occlusion in either vertebral artery.
3. Large multinodular thyroid goiter.
4. 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
5. Severe left facet joint arthrosis at C3/C4 causing severe left neural foraminal narrowing.
HEAD CTA 01/22 @ 3PM:
1. 50-70% diameter stenosis in the clinoid segment of the right ICA.
2. No CTA evidence for stenosis or occlusion in either middle or anterior cerebral artery.
3. 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
4. No CTA evidence for large vessel arterial stenosis or occlusion in the posterior circulation.
-Repeat Ct head- 01/22 @ 8PM
1. New asymmetric loss of fdth-[id number]-[id number] matter differentiation in the posterior superior left temporal lobe and inferior left parietal lobe suggesting cytotoxic edema from an acute transcortical ischemic infarct in the left middle
cerebral artery territory.
-TNK given 01/22
-Neurochecks and NIH checks per protocol
-Check A1c and lipid panel
-Check speech and swallow-cont NPO for now
-d/w Neurology
-start asa and atorva today
-check MRI today
-eventual DVTp when able
-transfer to tele OK with neuro
# New onset atrial fibrillation
-Rate controlled, CVasc-5
-Cardiology consulted
-start NOAC in 1 week s/p TNK
-start coreg
-echo 01/22- Normal left ventricular systolic function. Normal regional wall motion. Mild concentric left ventricular hypertrophy. Left ventricular ejection fraction is 65-70%.
#Essential hypertension
-Unclear if compliant with metoprolol- hold change to coreg
# MN thyroid
- thyroid US as OP
- check TSH
# Leukocytosis
- likely reactive
- trend
Full code
DVT prophylaxis�SCDs
N.p.o.
ACP
Patient consented to discuss by nodding, was with , time spent explanation of advance directives, changes in health status, patient�s health care wishes if the patient becomes unable to make health decisions, goals of care, code status, and
prognosis 'i cant think about that right now do everything'- 16 minutes
CC Note
Due to a high probability of clinically significant, life-threatening deterioration, the patient required a high level of preparedness to intervene emergently. I personally spent this critical care time directly and personally managing the patient.
This critical care time included obtaining a history; examining the patient; ordering and review of studies and STAT labs; arranging urgent treatment with development of a management plan; evaluation of patient's response to treatment; reassessment;
and, discussions with other providers.
This critical care time was performed to assess and manage the high probability of imminent, life-threatening deterioration that could result in multi-organ failure. It was exclusive of separately billable procedures and treating other patients and
teaching time. Total time documented is also exclusive of any additional time listed that was spent in advance care planning discussion
Total critical care time: Approximately 35 minutes
Original Note:
Today's Communication/Plan
-
* ST-PT-OT
* Echo and MR planned.
* Eventual switch to DOAC.
* Strict BP control.
Assessment / Plan
Assessment / Plan
Assessment
Varun Beebe, 79-year-old male, was admitted to the hospital on 01-22-25 with expressive aphasia, left-sided facial droop and questionable right-sided weakness. He was also found to be in atrial fibrillation, and with his only medication being
metoprolol succinate, there was a question about how long he has had a-fib and if he is/was anticoagulated. Records did not show he was ever prescribed an AC and family were not reachable, so decision was made to initiate tenecteplase. He was
admitted to the ICU for eventual care.
Impression and plan
Left middle cerebral artery stroke
- Likely embolic in setting of atrial fibrillation and not on anticoagulation.
- Has regained some word finding ability but continues to have difficulties.
- Eventual switch to DOAC.
- Blood pressure goal of <180/105 mmHg or MAP 80-100.
- Nicardipine or labetalol for corrections.
- Start carvedilol.
- Neurochecks per protocol.
- MR pending.
- ST-PT-OT.
Atrial fibrillation without rapid ventricular response, uncertain chronicity
- On nicardipine; continue metoprolol once off.
- [id number] of 5.
- Plan to initiate DOAC.
- Echocardiogram pending.
Primary hypertension
- On metoprolol.
- Likely would benefit from additional agents.
Leukocytosis
- Likely reactive in setting of acute CVA and thrombolysis.
- Asymptomatic from an infectious stand point.
Right internal carotid artery stenosis.
- Asymptomatic.
Large multinodular thyroid goiter
- Noted on CTA.
- No known history of thyroid disease.
- TSH within normal limits; T4 and T3 pending.
Hyperlipidemia
- Start high-intensity statins.
Thromboprophylaxis
- Sequential compression device.
Code status
- Full.
Anticipated Discharge: > 48 hours
Subjective/Interval History
-
Date of Service: January 23, 2025
Improved word recall - able to use words in combinations now.
Objective Data
-
Labs:
Laboratory Results
01/23/25
04:18
WBC 22.8 H
Hgb 14.4
Hct 43.2
Plt Count 223
Sodium 139
Potassium 4.4
Chloride 106
Carbon Dioxide 25
BUN 19
Creatinine 0.8
Glucose 111 H
Calcium 9.2
Vital Signs:
Vital Signs
Temp Pulse Resp BP Pulse Ox
98.1 F 89 18 141/83 96
01/23/25 11:39 01/23/25 14:15 01/23/25 14:15 01/23/25 14:15 01/23/25 10:45
I&O
01/22/25 01/23/25 01/24/25
06:59 06:59 06:59
Intake Total 945.0 / 1045.0 762.5 / 762.5
Output Total 700 / 700 700 / 700
Balance 245.0 / 345.0 62.5 / 62.5
Review of Systems
-
Unable to obtain full review of systems at this time due to: Acuity
Physical Exam
-
General: No Apparent Distress and Comfortable
HEENT: Normocephalic, Atraumatic, Moist Mucous Membranes and Other (ptosis on LEFT with facial droop)
Respiratory: Clear to Auscultation and Non Labored Respirations
Cardiac: Regular Rhythm and S1/S2
GI: Soft, Nontender, Nondistended and No Hepatosplenomegaly
Genito-urinary: No Costovertebral Tender
Musculoskeletal: No Clubbing, No Cyanosis and No Edema
Skin: Warm, Dry and IV Access / Catheter Site
Neuro: Awake, Alert, Facial Droop and Other (expressive aphasia)
Hematologic / Lymphatic: No Lymphadenopathy
Psych: Anxious
--- NOTE | 2025-01-23 14:55 | CM ---
CM reviewed chart, call to patients , Seema, initial assessment completed. Per , patient resides in a two story home (through front door: 5 steps, landing, another 5 steps, through garage: 12 steps to enter home). Patient is independent with
ADLs/IADLs, denies DME, reports VN in past after bilateral hip surgery, unsure agency, denies SNF. 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 reports patient sees PCP Dr. Turcios through [facility] once a year (in [place]), [facility] in [place] for immediate
needs, otherwise [facility]. CM will continue to follow for all discharge planning needs.
Plan; watch for PT/OT evals when able
--- NOTE | 2025-01-23 15:31 | W.PN.CARDCBS ---
Today's Communication / Plan
-
Status post CVA
Blood pressure management with goals per neurology.
Await echocardiogram
Risk factor modification
Atrial fibrillation is rate controlled.
Impression / Plan
-
PCP: at [place]
Card: Dr. Sorto [phone]
Impression:
Admitted with aphasia, left sided facial droop, acute CVA and received TNK 01/22/25
Acute left MCA territory CVA 01/22/25
s/p TNK 01/22/25
Afib with controlled ventricular response of unknown chronicity
HTN
Echo 01/22/25: study pending
CTA of the head and neck 01/22/2025 revealed
NECK CTA:
1. Mild calcific atherosclerotic plaque in both carotid bifurcations without evidence for stenosis or occlusion.
2. No CTA evidence for stenosis or occlusion in either vertebral artery.
3. Large multinodular thyroid goiter.
HEAD CTA:
1. 50-70% diameter stenosis in the clinoid segment of the right ICA.
2. No CTA evidence for stenosis or occlusion in either middle or anterior cerebral artery.
3. 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
4. No CTA evidence for large vessel arterial stenosis or occlusion in the posterior circulation.
Plan:
Patient presented as a stroke alert with CVA and new onset atrial fibrillation. CT scan of the head 01/22/2025 with left MCA territory infarct.
Blood pressure fair overall. Continue permissive hypertension defer goals to neurology. Patiently is chronically on Toprol-XL 100 mg daily reportedly for history of HTN.
High intensity statin started. Lipids reviewed.
New onset atrial fibrillation noted. Patient now remains in rate controlled atrial fibrillation on review of telemetry. Oral anticoagulation timing per nephrology. Previously discussed with patient and about eventually starting Eliquis 5 mg
BID (age 79, wt 116 kg).
Continue neurology follow-up.
Await echocardiogram.
Progress Note - Customer Assistant
Subjective
Date of Service: January 23, 2025
He has aphasia. He appears comfortable. He tries to answer questions
Objective
Labs:
01/23/25 04:18
01/23/25 04:18
Labs
Hgb 14.4 g/dL (13.0-18.0) 01/23/25 04:18
Hct 43.2 % (39.0-52.0) 01/23/25 04:18
Plt Count 223 10^3/uL (130-400) 01/23/25 04:18
PT 15.3 Sec (11.4-14.6) H 01/22/25 16:02
INR 1.15 01/22/25 16:02
APTT 26.8 Sec (23.4-35.0) 01/22/25 16:02
Sodium 139 mmol/L (135-145) 01/23/25 04:18
Potassium 4.4 mmol/L (3.5-5.1) 01/23/25 04:18
BUN 19 mg/dl (9-20) 01/23/25 04:18
Creatinine 0.8 mg/dL (0.7-1.3) 01/23/25 04:18
Glucose 111 mg/dl (70-99) H 01/23/25 04:18
Troponins
01/22/25
16:02
Troponin I < 0.012
Vital Signs and I&O:
Vital Signs
Temp Pulse Resp BP Pulse Ox
98.1 F 89 18 141/83 96
01/23/25 11:39 01/23/25 14:15 01/23/25 14:15 01/23/25 14:15 01/23/25 10:45
Vital Signs
Temp Pulse Resp BP Pulse Ox
98.1 F 89 18 141/83 96
01/23/25 11:39 01/23/25 14:15 01/23/25 14:15 01/23/25 14:15 01/23/25 10:45
Intake & Output
01/21/25 01/22/25 01/23/25 01/24/25
06:59 06:59 06:59 06:59
Intake Total 945.0 / 1045.0 762.5 / 762.5
Output Total 700 / 700 700 / 700
Balance 245.0 / 345.0 62.5 / 62.5
Physical Exam
Physical Exam
General: Well developed, well nourished in NAD.
Heart: Distant heart sounds irregularly irregular
Lungs: Coarse anterior breath sounds
Extremities: No clubbing, cyanosis or edema bilaterally.
Neuro: Aphasic
--- NOTE | 2025-01-23 17:09 | PTCARENOTE ---
MRI completed, no further change in assessment.
--- NOTE | 2025-01-23 17:59 | W.PN.NEURO.1 ---
Today's Communication / Plan
-
start aspirin 81
switch to Eliquis in 1 week
ok to downgrade
Neuro Assessment/Plan
Assessment
Acute stroke left MCA territory - posterior temporal
Head CT from last night reviewed with patient and his Seema this morning
MRI imgs reviewed, infarct left posterior temporal
no obvious physical deficits, however the aphasia can be very disabling, particularly as it is not obvious to people that he may interact with in public. given excellent prior level of function hopeful for a good recovery; may extend out to one year
Plan
start aspirin 81
switch to Eliquis in 1 week
normalize blood pressure
ok to downgrade
Subjective/Objective
Subjective Data
Date of Service: January 23, 2025
last evening i spoke with Dr Cannon
remains very aphasic, improving
Objective Data
Vital Signs
Temp Pulse Resp BP Pulse Ox
36.6 C 107 20 148/95 93
01/23/25 15:42 01/23/25 17:00 01/23/25 17:00 01/23/25 17:00 01/23/25 17:00
Lab Results
01/23/25 04:18
01/23/25 04:18
PT 15.3 Sec (11.4-14.6) H 01/22/25 16:02
INR 1.15 01/22/25 16:02
APTT 26.8 Sec (23.4-35.0) 01/22/25 16:02
Sodium 139 mmol/L (135-145) 01/23/25 04:18
Potassium 4.4 mmol/L (3.5-5.1) 01/23/25 04:18
BUN 19 mg/dl (9-20) 01/23/25 04:18
Glucose 111 mg/dl (70-99) H 01/23/25 04:18
Calcium 9.2 mg/dl (8.4-10.2) 01/23/25 04:18
Phosphorus 3.2 mg/dl (2.5-4.5) 01/23/25 04:18
LDL Cholesterol, Calc 139 mg/dl 01/23/25 04:18
Patient Allergies
No Known Allergies Allergy (Verified 01/22/25 15:25)
Physical Exam
-
globally aphasic moderate to severe
otherwise non focal
[2025-01-23 18:09] LABS: Free T3 3.28 pg/ml (2.77-5.27); Total Thyroxine 6.79 ug/dl (5.5-11.0)
[2025-01-23] MEDS: ATIVAN 1 MG IV (18:12)
[2025-01-23] MEDS: NSS (PRESERVATIVE FREE) 0.5 ML IV (18:12)
[2025-01-23] MEDS: LIPITOR 40 MG PO (18:13)
[2025-01-23] MEDS: ASPIR LOW (ENTERIC COATED) 81 MG PO (18:13)
--- NOTE | 2025-01-23 21:45 | PTCARENOTE ---
Handoff report received from off going RN. Dual RN NIHSS assessment completed. Pt's with left sided facial droop,dysarthria, severe aphasia. NIHSS 7. Difficult to assess as pt's seem to not comprehend tasks being asked of him at times. LOUIS x4. GCS
13. Follows simple commands with coaxing/encouragement. Afib on the monitor with HR in the 80s. SpO2 at 94% on room air. +BS. Abdomen is round and obese.
~[id number]: Report called for transfer to [facility]. Patient transferred. Remained controlled Afib on the monitor. NIHSS handoff assessment completed with receiving RN.
[2025-01-24] VITALS (10 sets, daily range): BP systolic 134–180; BP diastolic 80–115; PULSE 101
[2025-01-24 07:47] LABS: Hematocrit 43.4 % (39.0-52.0); Hemoglobin 14.6 g/dL (13.0-18.0); Mean Corp Hgb Conc. 33.6 g/dL (33.0-37.0); Mean Corpuscular Hgb 29.4 pg (27.0-31.0); Mean Corpuscular Volume 87.5 fL (80.0-94.0); Mean Platelet Volume 9.3 fL (7.4-10.4); Platelet Count 217 10^3/uL (130-400); Red Blood Cell Count 4.96 10^6/uL (4.70-6.10); Red Cell Dist. Width 14.6 % (11.5-14.5)
[2025-01-24 08:24] LABS: ALT (SGPT) 20 U/L (0-50); AST (SGOT) 26 U/L (17-59); Albumin 4.1 g/dl (3.5-5.0); Alkaline Phosphatase 87 U/L (38-126); Blood Urea Nitrogen 16 mg/dl (9-20); Calcium 9.3 mg/dl (8.4-10.2); Carbon Dioxide 20 mmol/L (22-30); Chloride 104 mmol/L (98-107); Estimated Creatinine Clearance 98 ml/min; Glucose 106 mg/dl (70-99); Potassium 4.8 mmol/L (3.5-5.1); Sodium 135 mmol/L (135-145); Total Bilirubin 1.7 mg/dl (0.2-1.3); Total Protein 6.5 g/dl (6.3-8.2); eGFR > 60.00
[2025-01-24] MEDS: ASPIR LOW (ENTERIC COATED) 81 MG PO (09:05)
[2025-01-24] MEDS: COREG 3.125 MG PO (09:05)
--- NOTE | 2025-01-24 10:03 | W.PN.CARDCBS ---
Today's Communication / Plan
-
Goal normotension
Rate control atrial fibrillation
Eventual start of Eliquis anticoagulation in 1 week per neurology
Outpatient cardiac follow-up to be arranged
Impression / Plan
-
PCP: at [place]
Card: Dr. Sorto [phone]
Impression:
Admitted with aphasia, left sided facial droop, acute CVA and received TNK 01/22/25
Acute left MCA territory CVA 01/22/25
s/p TNK 01/22/25
Afib with controlled ventricular response of unknown chronicity
HTN
Echo 01/22/25: Normal biventricular size and systolic function with mild concentric left ventricular hypertrophy. EF 65 to 70%. Normal atrial dimensions. Trace mitral regurgitation. Mild tricuspid regurgitation. Trileaflet aortic valve
structurally normal. Estimated pulmonary artery pressure 34 mmHg. No pericardial effusion.
CTA of the head and neck 01/22/2025 revealed
NECK CTA:
1. Mild calcific atherosclerotic plaque in both carotid bifurcations without evidence for stenosis or occlusion.
2. No CTA evidence for stenosis or occlusion in either vertebral artery.
3. Large multinodular thyroid goiter.
HEAD CTA:
1. 50-70% diameter stenosis in the clinoid segment of the right ICA.
2. No CTA evidence for stenosis or occlusion in either middle or anterior cerebral artery.
3. 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
4. No CTA evidence for large vessel arterial stenosis or occlusion in the posterior circulation.
Plan:
Patient presented as a stroke alert with CVA and new diagnosed atrial fibrillation. CT scan of the head 01/22/2025 with left MCA territory infarct.
-Patient still is dysarthric with word finding difficulty although states may be slightly improved
-Neurology consult reviewed; discussed plan with neurology
-New aspirin 81 mg for 1 week and then switch to Eliquis 5 mg twice daily per neurology
-New atorvastatin 40 mg daily. Prestatin LDL 139. Goal LDL less than 70 mg/dL if not ideally closer to 55-60 mg/dL. Will need repeat lipid profile in 3 months.
-Adjust antihypertensive therapy for goal normotension. Patient had been on metoprolol succinate 100 mg daily and switch to low-dose carvedilol on admission. Will discontinue carvedilol and restart metoprolol succinate 25 mg twice daily. Pending
beta pressure response will likely need another agent and would consider adding ASCENCION inhibitor.
-PT/OT/speech therapy as per neurology
Newly diagnosed atrial fibrillation, asymptomatic
-Plan for rate control strategy at this time. Can consider rhythm control strategy in the future as an outpatient
-Rates elevated this morning however had been on higher doses of metoprolol as an outpatient
-Will transition carvedilol back to metoprolol and uptitrate for rate control
-On aspirin 81 mg daily at this time per neurology with plan to transition to Eliquis 5 mg BID (age 79, wt 116 kg) in 1 week
-TSH within normal limit
Right ICA stenosis
-Continue aspirin/statin
-Will need outpatient surveillance monitoring
Prediabetes with hemoglobin A1c 5.7%
-Goal normoglycemia
Continue neurology follow-up.
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
Subjective
Date of Service: January 24, 2025
Patient seen and examined with nursing and at bedside. Awake and alert. Comprehension grossly appears intact however having word finding difficulty/dysarthria.
Objective
Labs:
01/24/25 07:05
01/24/25 07:05
Labs
Hgb 14.6 g/dL (13.0-18.0) 01/24/25 07:05
Hct 43.4 % (39.0-52.0) 01/24/25 07:05
Plt Count 217 10^3/uL (130-400) 01/24/25 07:05
PT 15.3 Sec (11.4-14.6) H 01/22/25 16:02
INR 1.15 01/22/25 16:02
APTT 26.8 Sec (23.4-35.0) 01/22/25 16:02
Sodium 135 mmol/L (135-145) 01/24/25 07:05
Potassium 4.8 mmol/L (3.5-5.1) 01/24/25 07:05
BUN 16 mg/dl (9-20) 01/24/25 07:05
Creatinine 0.8 mg/dL (0.7-1.3) 01/24/25 07:05
Glucose 106 mg/dl (70-99) H 01/24/25 07:05
Troponins
01/22/25
16:02
Troponin I < 0.012
Vital Signs and I&O:
Vital Signs
Temp Pulse Resp BP Pulse Ox
98.1 F 110 20 178/98 96
01/24/25 07:50 01/24/25 09:05 01/24/25 07:50 01/24/25 09:05 01/24/25 07:50
Vital Signs
Temp Pulse Resp BP Pulse Ox
98.1 F 110 20 178/98 96
01/24/25 07:50 01/24/25 09:05 01/24/25 07:50 01/24/25 09:05 01/24/25 07:50
Intake & Output
01/22/25 01/23/25 01/24/25 01/25/25
06:59 06:59 06:59 06:59
Intake Total 945.0 / 1045.0 1062.5 / 1062.5
Output Total 700 / 700 0 / 1909 200 / 200
Balance 245.0 / 345.0 -847.5 / -847.5 -200 / -200
Physical Exam
Physical Exam
General: NAD, RA
Neck: Negative JVD
Heart: Irregularly irregular. Positive S1-S2. No murmur
Lungs: CTA b/l, negative wheezes/rales/rhonchi
Abd: Positive BS, NT/ND, neg rebound/rigidity/guarding
Ext: No edema
Neuro: Dysarthria/word finding difficult
[2025-01-24] MEDS: TOPROL XL 25 MG PO (10:14)
[2025-01-24] MEDS: APRESOLINE 10 MG IV ×2 (12:30→16:43)
--- NOTE | 2025-01-24 14:30 | W.PN.HOSP.TC ---
Addendum entered and electronically signed by Oswaldo Schmitz MD 01/24/25 21:49:
Attending Addendum-
I saw and evaluated the patient. I reviewed the resident�s note and agree with findings and plan as documented in the resident�s note. Sub: Patient seen with . Still with word finding difficulty but improved. Follows Commands. H/O from .
Doesn't appear to be in distress.Full 12 point ROS reviewed and negative except as documented - limited by aphasia Exam: Vitals reviewed in chart GEN-NAD Heart irreg irreg lungs clear abd soft LE no edema Neuro expressive aphasia following commands
consistently MS 5/5 throughout no cerebellar deficits no facial droop noted no right sided neglect noted
# Acute CVA with expressive Aphasia
# Hypertensive Urgency
-goal of normotension- increase metoprolol
-weaned off Nicardipine gtt
-likely cardioembolic with new a fib
NECK CTA:
1. Mild calcific atherosclerotic plaque in both carotid bifurcations without evidence for stenosis or occlusion.
2. No CTA evidence for stenosis or occlusion in either vertebral artery.
3. Large multinodular thyroid goiter.
HEAD CTA 01/22 @ 3PM:
1. 50-70% diameter stenosis in the clinoid segment of the right ICA.
2. No CTA evidence for stenosis or occlusion in either middle or anterior cerebral artery.
3. 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
4. No CTA evidence for large vessel arterial stenosis or occlusion in the posterior circulation.
-Repeat CT head- 01/22 @ 8PM
1. New asymmetric loss of [id number] matter differentiation in the posterior superior left temporal lobe and inferior left parietal lobe suggesting cytotoxic edema from an acute transcortical ischemic infarct in the left middle
cerebral artery territory.
-TNK given 01/22
-Neurochecks and NIH checks per protocol
-d/w Neurology
-cont asa and atorvastatin today
-MRI-01/23-Acute infarct involving the body and posterior left temporal lobe. Associated mild edema with cerebral sulcal effacement. No significant mass effect. No midline shift. No acute hemorrhage.
Few tiny cortical infarcts are demonstrated involving the left parietal lobe and superior left frontal lobe.
-Speech eval- safe to advance diet
-for OP speech therapy
# New onset atrial fibrillation
-Rate controlled, CVasc-5
-Cardiology on board
-start NOAC in 1 week s/p TNK
-restart home metoprolol - uptitrate to home dose
-echo 01/22- Normal left ventricular systolic function. Normal regional wall motion. Mild concentric left ventricular hypertrophy. Left ventricular ejection fraction is 65-70%.
#Essential hypertension
-Unclear if compliant with metoprolol
-restart
# MN thyroid
- thyroid US as OP
- TSH - WNL
# Leukocytosis
- likely reactive
- trend
Full code
DVT prophylaxis�SCDs
Dispo- DC home in AM when BP better controlled
Time spent coordinating care, review of plan of care with resident, personally reviewed records in EMR, med rec, consults, notes, labs, radiology, d/w nursing POA and CM � 53 mins
Original Note:
Today's Communication/Plan
-
* Re-start metoprolol.
* Hydralazine as needed.
* Physiatry consultation.
* Discharge planning.
Assessment / Plan
Assessment / Plan
Assessment
Varun Beebe, 79-year-old male, was admitted to the hospital on 01-22-25 with expressive aphasia, left-sided facial droop and questionable right-sided weakness. He was also found to be in atrial fibrillation, and with his only medication being
metoprolol succinate, there was a question about how long he has had a-fib and if he is/was anticoagulated. Records did not show he was ever prescribed an AC and family were not reachable, so decision was made to initiate tenecteplase. He was
admitted to the ICU for eventual care.
Impression and plan
Left middle cerebral artery stroke
- Likely embolic in setting of atrial fibrillation and not on anticoagulation.
- Has regained some word finding ability but continues to have difficulties.
- Eventual switch to DOAC.
- Blood pressure goal of <180/105 mmHg or MAP 80-100.
- Hydralazine for corrections.
- Re-start metoprolol at 25 mg BID; up-titrate as tolerated.
- Neurochecks per protocol.
- MR consistent with CVA.
- ST-PT-OT.
- Consult physiatry.
Atrial fibrillation without rapid ventricular response, uncertain chronicity
- On nicardipine; continue metoprolol once off.
- [id number] of 5.
- Plan to initiate DOAC.
- Echocardiogram unremarkable.
Primary hypertension
- On metoprolol.
- Likely would benefit from additional agents.
Leukocytosis
- Likely reactive in setting of acute CVA and thrombolysis.
- Asymptomatic from an infectious stand point.
Right internal carotid artery stenosis.
- Asymptomatic.
Large multinodular thyroid goiter
- Noted on CTA.
- No known history of thyroid disease.
- TSH within normal limits; T4 and T3 unremarkable.
Hyperlipidemia
- Start high-intensity statins.
- LDL goal <70.
Thromboprophylaxis
- Sequential compression device.
Code status
- Full.
Anticipated Discharge: Within 24 hours
Subjective/Interval History
-
Date of Service: January 24, 2025
Stringing words better. Able to communicate to his partner that she is 'a pain in the ass' - was not able to do so yesterday. Improving.
Objective Data
-
Labs:
Laboratory Results
01/24/25
07:05
WBC 22.0 H
Hgb 14.6
Hct 43.4
Plt Count 217
Sodium 135
Potassium 4.8
Chloride 104
Carbon Dioxide 20 L
BUN 16
Creatinine 0.8
Glucose 106 H
Calcium 9.3
Total Bilirubin 1.7 H
AST 26
ALT 20
Alkaline Phosphatase 87
Vital Signs:
Vital Signs
Temp Pulse Resp BP Pulse Ox
98.1 F 103 20 167/80 98
01/24/25 11:52 01/24/25 13:51 01/24/25 11:52 01/24/25 13:51 01/24/25 11:52
I&O
01/23/25 01/24/25 01/25/25
06:59 06:59 06:59
Intake Total 945.0 / 1045.0 1062.5 / 1062.5 720 / 720
Output Total 700 / 700 1910 / 1910 200 / 200
Balance 245.0 / 345.0 -847.5 / -847.5 520 / 520
Review of Systems
-
Unable to obtain full review of systems at this time due to: Acuity
Physical Exam
-
General: No Apparent Distress and Comfortable
HEENT: Normocephalic, Atraumatic, Moist Mucous Membranes and Other (ptosis on LEFT with facial droop)
Respiratory: Clear to Auscultation and Non Labored Respirations
Cardiac: Regular Rhythm and S1/S2
GI: Soft, Nontender, Nondistended and No Hepatosplenomegaly
Genito-urinary: No Costovertebral Tender
Musculoskeletal: No Clubbing, No Cyanosis and No Edema
Skin: Warm, Dry and IV Access / Catheter Site
Neuro: Awake, Alert, Facial Droop and Other (expressive aphasia)
Hematologic / Lymphatic: No Lymphadenopathy
Psych: Anxious
--- NOTE | 2025-01-24 17:19 | CM ---
Chart reviewed and plan is to home with outpatient PT.
Plan; Home at discharge.
[2025-01-24] MEDS: LIPITOR 40 MG PO (17:30)
--- NOTE | 2025-01-24 18:45 | PTCARENOTE ---
Received patient this am AAOx3. Pt has some cognitive and speech impairment secondary to CVA. Pt b/p 178/98 this am. Cardiology an Medicine made aware. Pt started on Toprol PO. B/p then 171/113 Made aware. Pt medicated with 10 mg IV
Hydralazine at 12:30. recheck B/P 167/80. 1535 B /P 180/114 Pt medicated with 10 mg IV Hydralazine. recheck b/p 149/91 HR 100. Pt tolerated diet. appetite poor. Pt OOB to chair and ambulated in hallway. Made patient comfortable. Cont to assess
patient status.
[2025-01-24] MEDS: TOPROL XL 50 MG PO (20:03)
[2025-01-25 03:51] VITALS: BP 146/97
[2025-01-25 07:35] VITALS: BP 173/98
[2025-01-25 07:57] LABS: Hematocrit 42.9 % (39.0-52.0); Hemoglobin 14.4 g/dL (13.0-18.0); Mean Corp Hgb Conc. 33.6 g/dL (33.0-37.0); Mean Corpuscular Hgb 29.3 pg (27.0-31.0); Mean Corpuscular Volume 87.4 fL (80.0-94.0); Mean Platelet Volume 9.3 fL (7.4-10.4); Platelet Count 216 10^3/uL (130-400); Red Blood Cell Count 4.91 10^6/uL (4.70-6.10); Red Cell Dist. Width 14.6 % (11.5-14.5); White Blood Cell Count 19.6 10^3/uL (4.8-10.8)
[2025-01-25 08:12] LABS: Blood Urea Nitrogen 16 mg/dl (9-20); Calcium 9.4 mg/dl (8.4-10.2); Carbon Dioxide 23 mmol/L (22-30); Chloride 106 mmol/L (98-107); Estimated Creatinine Clearance 98 ml/min; Glucose 108 mg/dl (70-99); Potassium 4.4 mmol/L (3.5-5.1); Sodium 136 mmol/L (135-145); eGFR > 60.00
[2025-01-25] MEDS: TOPROL XL 50 MG PO (08:34)
[2025-01-25] MEDS: ASPIR LOW (ENTERIC COATED) 81 MG PO (08:34)
--- NOTE | 2025-01-25 09:41 | W.PN.CARDCBS ---
Today's Communication / Plan
-
adding now dose and daily lisinopril 10 mg daily.
Impression / Plan
-
PCP: at [facility]
Card: Dr. Sorto [phone]
Impression:
Admitted with aphasia, left sided facial droop, acute CVA and received TNK 01/22/25
Acute left MCA territory CVA 01/22/25
s/p TNK 01/22/25
Afib with controlled ventricular response of unknown chronicity
HTN
Echo 01/22/25: Normal biventricular size and systolic function with mild concentric left ventricular hypertrophy. EF 65 to 70%. Normal atrial dimensions. Trace mitral regurgitation. Mild tricuspid regurgitation. Trileaflet aortic valve
structurally normal. Estimated pulmonary artery pressure 34 mmHg. No pericardial effusion.
CTA of the head and neck 01/22/2025 revealed
NECK CTA:
1. Mild calcific atherosclerotic plaque in both carotid bifurcations without evidence for stenosis or occlusion.
2. No CTA evidence for stenosis or occlusion in either vertebral artery.
3. Large multinodular thyroid goiter.
HEAD CTA:
1. 50-70% diameter stenosis in the clinoid segment of the right ICA.
2. No CTA evidence for stenosis or occlusion in either middle or anterior cerebral artery.
3. 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
4. No CTA evidence for large vessel arterial stenosis or occlusion in the posterior circulation.
Plan:
Patient presented as a stroke alert with CVA and new diagnosed atrial fibrillation. CT scan of the head 01/22/2025 with left MCA territory infarct.
Dysarthric with word finding difficulty
Neurology consult reviewed; discussed plan with neurology
New aspirin 81 mg for 1 week and then switch to Eliquis 5 mg twice daily per neurology
Maintain atorvastatin 40 mg daily. Prestatin LDL 139. Goal LDL less than 70 mg/dL if not ideally closer to 55-60 mg/dL. Will need repeat lipid profile in 3 months.
Adjust antihypertensive therapy for goal normotension. Patient had been on metoprolol succinate 100 mg daily and switch to low-dose carvedilol on admission.
We have discontinued carvedilol and restarted metoprolol succinate now with dose up to 50 mg BID. Maintain metoprolol succinate 50 mg twice daily
Has yet to achieve normotension. Will add ASCENCION inhibitor, lisinopril 10 mg daily.
From a cardiology standpoint normotension can be further obtained as an outpatient
Newly diagnosed atrial fibrillation, asymptomatic
Plan for rate control strategy at this time. Can consider rhythm control strategy in the future as an outpatient
Rates are better controlled on higher dose of metoprolol succinate at 50 mg twice daily. Maintain metoprolol succinate 50 mg twice daily
On aspirin 81 mg daily at this time per neurology with plan to transition to Eliquis 5 mg BID (age 79, wt 116 kg) after 1 week of asa (stopping asa and starting apixaban 5 mg BID)
Right ICA stenosis
Continue atorvastatin 40 mg daily
Will need outpatient surveillance monitoring
Prediabetes with hemoglobin A1c 5.7%
Goal normoglycemia
Continue neurology follow-up.
Total time spent today was 50 minutes in preparing to see the patient, seeing the patient and coordination of care. This included review of recent laboratory evaluations, cardiact testing, imaging studies, primary care rtecords, specialty
consultations, hospital records, as well as personally interviewing and examining the patient, which included discussion of their tests, review/ordering medications, and communicating with other healthcare professionals and also treatment planning
as well as counseling.
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
Subjective
Date of Service: January 25, 2025
denies CP, SOB, palps
Objective
Labs:
01/25/25 07:23
01/25/25 07:23
Labs
Hgb 14.4 g/dL (13.0-18.0) 01/25/25 07:23
Hct 42.9 % (39.0-52.0) 01/25/25 07:23
Plt Count 216 10^3/uL (130-400) 01/25/25 07:23
PT 15.3 Sec (11.4-14.6) H 01/22/25 16:02
INR 1.15 01/22/25 16:02
APTT 26.8 Sec (23.4-35.0) 01/22/25 16:02
Sodium 136 mmol/L (135-145) 01/25/25 07:23
Potassium 4.4 mmol/L (3.5-5.1) 01/25/25 07:23
BUN 16 mg/dl (9-20) 01/25/25 07:23
Creatinine 0.8 mg/dL (0.7-1.3) 01/25/25 07:23
Glucose 108 mg/dl (70-99) H 01/25/25 07:23
Troponins
01/22/25
16:02
Troponin I < 0.012
Vital Signs and I&O:
Vital Signs
Temp Pulse Resp BP Pulse Ox
97.7 F 79 18 173/98 95
01/25/25 07:35 01/25/25 07:35 01/25/25 07:35 01/25/25 07:35 01/25/25 07:35
Vital Signs
Temp Pulse Resp BP Pulse Ox
97.7 F 79 18 173/98 95
01/25/25 07:35 01/25/25 07:35 01/25/25 07:35 01/25/25 07:35 01/25/25 07:35
Intake & Output
01/23/25 01/24/25 01/25/25 01/26/25
06:59 06:59 06:59 06:59
Intake Total 945.0 / 1045.0 1062.5 / 1062.5 720 / 720 240 / 240
Output Total 700 / 700 1910 / 1910 200 / 200
Balance 245.0 / 345.0 -847.5 / -847.5 520 / 520 240 / 240
Physical Exam
Physical Exam
General: NAD, RA
Neck: Negative JVD
Heart: Irregularly irregular. Positive S1-S2. No murmur
Lungs: CTA b/l, negative wheezes/rales/rhonchi
Abd: Positive BS, NT/ND, neg rebound/rigidity/guarding
Ext: No edema
Neuro: Dysarthria/word finding difficult
--- NOTE | 2025-01-25 09:56 | W.PN.HOSP.TC ---
Today's Communication/Plan
-
repeat BP at noon and 3pm - reassess BP trends for possible DC. Likely will need 2nd agent
Assessment / Plan
Assessment / Plan
Assessment
Varun Beebe, 79-year-old male, was admitted to the hospital on 01-22-25 with expressive aphasia, left-sided facial droop and questionable right-sided weakness. He was also found to be in atrial fibrillation, and with his only medication being
metoprolol succinate, there was a question about how long he has had a-fib and if he is/was anticoagulated. Records did not show he was ever prescribed an AC and family were not reachable, so decision was made to initiate tenecteplase. He was
admitted to the ICU for eventual care.
Impression and plan
Left middle cerebral artery stroke
- Likely embolic in setting of atrial fibrillation and not on anticoagulation.
- Has regained some word finding ability but continues to have difficulties.
- Eventual switch to DOAC in 1 week. ASA until then.
- BP control - goal normotension. Continue Metoprolol BID. consider Lisinopril 10mg pending next BP check.
- MR consistent with CVA.
- ST-PT-OT.
- dc home Outpatient PT/OT
Atrial fibrillation without rapid ventricular response, uncertain chronicity
- rate control Metoprolol
- [id number] of 5.
- Plan to initiate DOAC in 1 week
- Echocardiogram unremarkable.
Primary hypertension
- BP control - goal normotension. Continue Metoprolol BID. consider Lisinopril 10mg pending next BP check.
Leukocytosis
- Likely reactive in setting of acute CVA and thrombolysis.
- Asymptomatic from an infectious stand point.
Right internal carotid artery stenosis.
- Asymptomatic.
Large multinodular thyroid goiter
- Noted on CTA.
- No known history of thyroid disease.
- TSH within normal limits; T4 and T3 unremarkable.
Hyperlipidemia
- Start high-intensity statins.
- LDL goal <70.
DVT ppx: SCDs
Code: Full
Anticipated Discharge: Within 24 hours
Subjective/Interval History
-
Date of Service: January 25, 2025
no complaints at present
BP elevated
Objective Data
-
Labs:
Laboratory Results
01/25/25
07:23
WBC 19.6 H
Hgb 14.4
Hct 42.9
Plt Count 216
Sodium 136
Potassium 4.4
Chloride 106
Carbon Dioxide 23
BUN 16
Creatinine 0.8
Glucose 108 H
Calcium 9.4
Vital Signs:
Vital Signs
Temp Pulse Resp BP Pulse Ox
97.7 F 79 18 173/98 95
01/25/25 07:35 01/25/25 07:35 01/25/25 07:35 01/25/25 07:35 01/25/25 07:35
I&O
01/24/25 01/25/25 01/26/25
06:59 06:59 06:59
Intake Total 1062.5 / 1062.5 720 / 720 240 / 240
Output Total 1909 / 1909 200 / 200
Balance -847.5 / -847.5 520 / 520 240 / 240
Physical Exam
-
General: No Apparent Distress
HEENT: Normocephalic and Atraumatic
Respiratory: Negative Wheezes
Cardiac: Regular Rhythm and S1/S2
GI: Soft and Nontender
Neuro: Awake, Alert and Other (expressive aphasia)
Hematologic / Lymphatic: No Lymphadenopathy
Psych: Calm
Data Reviewed
-
Total Time Spent with Patient (in minutes): 41
Labs: Labs Reviewed by me
[2025-01-25 11:59] VITALS: BP 110/80
[2025-01-25 13:58] VITALS: BP 131/89; BP 148/84; PULSE 90
[2025-01-25 15:08] VITALS: BP 133/72
--- NOTE | 2025-01-25 15:20 | CM ---
CM following re: discharge planning.
Reviewed pt's chart, met with pt and pt's spouse at bedside.
Discharge order noted. Both pt and his spouse are aware, expressed their agreement with discharge. IMM reviewed, placed on chart, pt has a copy.
PT, OT and ST evaluations noted - outpatient PT, OT and ST recommended.
Pt has a script for outpatient PT, OT, ST and pt's spouse stated she will bring the pt to outpatient therapy.
D/C plan: home with outpatient therapy at hospital and family support. Spouse to transport.
--- NOTE | 2025-01-25 18:15 | W.DCSUMMARY ---
Discharge Summary
Discharge Data
Date of Admission: 01/22/25
Date of Discharge: 01/25/25
-
Pending Results: No
Hospital Course
Primary discharge diagnosis
* Left middle cerebral artery stroke
Secondary discharge diagnoses
- Atrial fibrillation without rapid ventricular response
- Primary hypertension
- Right internal carotid artery stenosis
- Large multinodular goiter
- Hyperlipidemia
Hospital course
Varun Beebe, 79-year-old male, was admitted to the hospital on 01-22-25 with expressive aphasia, left-sided facial droop and questionable right-sided weakness. He was also found to be in atrial fibrillation, and with his only medication being
metoprolol succinate, there was a question about how long he has had a-fib and if he is/was anticoagulated. Records did not show he was ever prescribed an AC and family were not reachable, so decision was made to initiate tenecteplase. He was
admitted to the ICU for eventual care. Responded well and was regaining more words. Switched to aspirin, with eventual switch to apixaban outpatient. Seen by ST, PT, OT; outpatient rehab. Follow-up with primary in under 1 week.
Discharge Plan
-
Patient Disposition: Home (Routine Discharge)
Discharge Diagnosis/Procedures: Acute CVA
Condition: Fair
Diet: Low Cholesterol
Activity: As tolerated
Other Services: OT and ST
Referrals:
UNKNOWN - PT NOT,INTERVIEWE [Family Provider] -
Additional Discharge Medication Instructions: take aspirin for 1 week after discharge, then stop aspirin and start Eliquis
Prescriptions:
New
atorvastatin 40 mg Tablet
40 mg PO QPM Qty: 30 0RF
metoprolol succinate 50 mg Tablet Extended Release 24 Hr
50 mg PO BID Qty: 60 0RF
aspirin 81 mg Tablet,Delayed Release (Dr/Ec)
81 mg PO DAILY Qty: 100 0RF
Eliquis 5 mg tablet
5 mg PO BID Qty: 60 0RF
Discontinued
metoprolol succinate [Toprol XL] 100 mg Tablet Extended Release 24 Hr
100 mg PO DAILY
Discharge Orders:
Discharge Patient (As Directed); Ordered 01/25/25
Ordered By: Kacie Montes De Oca
Discharge Date and Time
Discharge Date/Time: 01/25/25 15:55
Print Language: THAI
== END 2025-01-25 15:55 | disposition home or self-care (01) | DRG 62 ==
LOC: 4 EAST ACU 16:27
PROVIDERS: Nurse Practitioner Family; Student in an Organized Health Care Education/Training Program; ADMITTING PHYSICIAN Hospitalist; ATTENDING PHYSICIAN Internal Medicine; CONSULT PHYSICIAN Internal Medicine Cardiovascular Disease; CONSULT PHYSICIAN Internal Medicine Critical Care Medicine; EMERGENCY PHYSICIAN Emergency Medicine; OTHER PHYSICIAN Psychiatry & Neurology Clinical Neurophysiology
PROC: 3E03317 Introduction of Other Thrombolytic into Peripheral Vein, Percutaneous Approach (ICD-10-PCS; 2025-01-22)
DX: I63.412 Cerebral infarction due to embolism of left middle cerebral artery (principal); I16.1 Hypertensive emergency; R29.708 NIHSS score 8; I48.91 Unspecified atrial fibrillation; I10 Essential (primary) hypertension; I65.21 Occlusion and stenosis of right carotid artery; E04.2 Nontoxic multinodular goiter; E78.5 Hyperlipidemia, unspecified; D72.829 Elevated white blood cell count, unspecified; I34.81 Nonrheumatic mitral (valve) annulus calcification; Z79.01 Long term (current) use of anticoagulants; Z79.82 Long term (current) use of aspirin; Z79.899 Other long term (current) drug therapy
CPT/HCPCS: 70450; 70496; 70498; 70551; 80048; 80053; 80061; 82962; 83036; 83735; 84100; 84436; 84443; 84481; 84484; 85025; 85027; 85610; 85730; 92507; 92523; 92526; 92610; 93005; 93306; 96374; 96375; 97116; 97163; 97167; 99291; J3101; Q9950; Q9967

== ENCOUNTER 2025-02-04 13:57 | Outpatient (RCR) | payer OTHER, SELFPAY | END 2025-02-04 23:59 | disposition home or self-care (01) | LOC: RST 13:57 | PROVIDERS: ATTENDING PHYSICIAN Psychiatry & Neurology Neurology; FAMILY PHYSICIAN Student in an Organized Health Care Education/Training Program | DX: I69.320 Aphasia following cerebral infarction (principal); I69.392 Facial weakness following cerebral infarction; Z73.6 Limitation of activities due to disability | CPT/HCPCS: 92507; 92523; 97167; 97535 ==

== ENCOUNTER 2025-03-11 15:12 | Outpatient (RCR) | payer OTHER, SELFPAY | END 2025-03-11 23:59 | disposition home or self-care (01) | LOC: RST 15:12 | PROVIDERS: ATTENDING PHYSICIAN Psychiatry & Neurology Neurology; FAMILY PHYSICIAN Student in an Organized Health Care Education/Training Program | DX: I69.320 Aphasia following cerebral infarction (principal); I69.392 Facial weakness following cerebral infarction; Z73.6 Limitation of activities due to disability | CPT/HCPCS: 92507; 97110; 97530; 97535; 97537 ==

== ENCOUNTER 2025-04-10 07:14 | Outpatient (RCR) | payer OTHER, SELFPAY | END 2025-04-10 23:59 | disposition home or self-care (01) | LOC: RST 07:14 | PROVIDERS: ATTENDING PHYSICIAN Psychiatry & Neurology Neurology; FAMILY PHYSICIAN Student in an Organized Health Care Education/Training Program | DX: I69.320 Aphasia following cerebral infarction (principal); I69.392 Facial weakness following cerebral infarction; Z73.6 Limitation of activities due to disability | CPT/HCPCS: 92507; 97530; 97535 ==

== ENCOUNTER 2025-05-09 08:26 | Outpatient (RCR) | payer OTHER, SELFPAY | END 2025-05-09 23:59 | disposition home or self-care (01) | LOC: RST 08:26 | PROVIDERS: ATTENDING PHYSICIAN Psychiatry & Neurology Neurology; FAMILY PHYSICIAN Student in an Organized Health Care Education/Training Program | DX: I69.320 Aphasia following cerebral infarction (principal); I69.392 Facial weakness following cerebral infarction; Z73.6 Limitation of activities due to disability | CPT/HCPCS: 92507; 97530; 97535; 97537 ==

== ENCOUNTER 2025-06-12 06:54 | Outpatient (RCR) | payer OTHER, SELFPAY | END 2025-06-12 23:59 | disposition home or self-care (01) | LOC: RST 06:54 | PROVIDERS: ATTENDING PHYSICIAN Psychiatry & Neurology Neurology; FAMILY PHYSICIAN Student in an Organized Health Care Education/Training Program | DX: I69.320 Aphasia following cerebral infarction (principal); I69.392 Facial weakness following cerebral infarction; Z73.6 Limitation of activities due to disability | CPT/HCPCS: 92507; 97530; 97535; 97537 ==

== ENCOUNTER 2025-07-10 07:19 | Outpatient (RCR) | payer OTHER, SELFPAY | END 2025-07-10 23:59 | disposition home or self-care (01) | LOC: RST 07:19 | PROVIDERS: ATTENDING PHYSICIAN Psychiatry & Neurology Neurology; FAMILY PHYSICIAN Student in an Organized Health Care Education/Training Program | DX: I69.320 Aphasia following cerebral infarction (principal); I69.392 Facial weakness following cerebral infarction; Z73.6 Limitation of activities due to disability | CPT/HCPCS: 92507; 97530; 97535 ==

== ENCOUNTER 2025-08-08 06:39 | Outpatient (RCR) | payer OTHER, SELFPAY | END 2025-08-08 23:59 | disposition home or self-care (01) | LOC: RST 06:39 | PROVIDERS: ATTENDING PHYSICIAN Psychiatry & Neurology Neurology; FAMILY PHYSICIAN Student in an Organized Health Care Education/Training Program | DX: I69.320 Aphasia following cerebral infarction (principal); I69.392 Facial weakness following cerebral infarction; Z73.6 Limitation of activities due to disability | CPT/HCPCS: 92507; 97530; 97535 ==

== ENCOUNTER 2025-09-11 07:00 | Outpatient (RCR) | payer OTHER, SELFPAY | END 2025-09-12 23:59 | disposition home or self-care (01) | LOC: RST 07:00 | PROVIDERS: ATTENDING PHYSICIAN Psychiatry & Neurology Neurology; FAMILY PHYSICIAN Student in an Organized Health Care Education/Training Program | DX: I69.320 Aphasia following cerebral infarction (principal); I69.392 Facial weakness following cerebral infarction; Z73.6 Limitation of activities due to disability | CPT/HCPCS: 92507; 97530; 97535 ==

== ENCOUNTER 2025-10-03 07:35 | Outpatient (RCR) | payer OTHER, SELFPAY | END 2025-10-03 23:59 | disposition home or self-care (01) | LOC: RST 07:35 | PROVIDERS: ATTENDING PHYSICIAN Psychiatry & Neurology Neurology; FAMILY PHYSICIAN Student in an Organized Health Care Education/Training Program | DX: I69.320 Aphasia following cerebral infarction (principal); I69.392 Facial weakness following cerebral infarction; Z73.6 Limitation of activities due to disability | CPT/HCPCS: 92507; 97530; 97535 ==

== ENCOUNTER 2025-10-31 07:19 | Outpatient (RCR) | payer OTHER, SELFPAY | END 2025-10-31 23:59 | disposition home or self-care (01) | LOC: RST 07:19 | PROVIDERS: ATTENDING PHYSICIAN Psychiatry & Neurology Neurology; FAMILY PHYSICIAN Student in an Organized Health Care Education/Training Program | DX: I69.320 Aphasia following cerebral infarction (principal); I69.392 Facial weakness following cerebral infarction; Z73.6 Limitation of activities due to disability | CPT/HCPCS: 92507 ==